=== PATIENT | female | born 1945 | race Caucasian/White ===

== ENCOUNTER → 2016-12-08 | Outpatient (CLI) | payer OTHER ==
[~2016-12-08] MED LIST: AMBEREN; EFFEXOR XR150 MG PO; FOSAMAX 70 MG T70 M1 PO; MOBIC7.5 MG PO; PHOSLO; SIMVASTATIN80 MG PO; VERAPAMIL ER120 MG PO
== END ==
LOC: RAD 11-16 13:11
DX: Z12.31 Encounter for screening mammogram for malignant neoplasm of breast (principal)

== ENCOUNTER → 2018-12-14 | Outpatient (CLI) | payer OTHER | LOC: RAD 01:55 | DX: Z12.31 Encounter for screening mammogram for malignant neoplasm of breast (principal) ==

== ENCOUNTER → 2019-12-18 | Outpatient (CLI) | payer OTHER | LOC: BC 10:48 | PROVIDERS: ATTEND Internal Medicine | DX: Z12.31 Encounter for screening mammogram for malignant neoplasm of breast (principal); Z90.11 Acquired absence of right breast and nipple ==

== ENCOUNTER → 2020-12-18 | Outpatient (CLI) | payer OTHER | LOC: BC 10:50 | PROVIDERS: ATTEND Internal Medicine | DX: Z12.31 Encounter for screening mammogram for malignant neoplasm of breast (principal); Z85.3 Personal history of malignant neoplasm of breast ==